=== PATIENT | female | born 1930 | race Caucasian/White ===

== ENCOUNTER 2019-10-16 13:09 | Inpatient (IN) | payer OTHER ==
[~2019-10-16] VITALS: Ht 152.4 cm; Wt 59.0 kg
[2019-10-16 13:25] VITALS: BP_SYST 127
[2019-10-16 14:25] LABS: BASOPHILS % (AUTO) 0.4 % (0.0-2.0); EOSINOPHILS % (AUTO) 0.4 % (0.0-4.0); HEMOGLOBIN 8.9 g/dL (12.0-16.0); LYMPHOCYTES # (AUTO) 0.6 K/uL (1.0-5.5); LYMPHOCYTES % (AUTO) 7.9 % (20.5-51.5); MEAN CORPUSCULAR HEMOGLOBIN 28 pg (27-31); MEAN CORPUSCULAR HGB CONC 33 % (32-36); MEAN CORPUSCULAR VOLUME 86 fL (79.0-98.0); MONOCYTES # (AUTO) 0.3 K/uL (0.0-1.0); MONOCYTES % (AUTO) 4.1 % (1.7-9.3); NEUTROPHILS # (AUTO) 6.9 K/uL (1.8-7.7); NEUTROPHILS % (AUTO) 87.2 % (40.0-70.0); PLATELET COUNT (AUTO) 172 K/uL (130-430); RED BLOOD CELL COUNT(AUTO) 3.17 MIL/uL (4.2-6.2); RED CELL DISTRIBUTION WIDTH 15.9 % (9.0-15.0)
[2019-10-16 14:26] LABS: HEMATOCRIT 27.1 % (36-48)
[2019-10-16 14:35] LABS: ANION GAP 5 (5-15); CALCIUM 8.2 mg/dL (8.4-11.0); CHLORIDE 105 mmol/L (98-107); CREATININE 0.98 mg/dL (0.55-1.30); GLUCOSE 166 mg/dL (70-99); POTASSIUM 4.2 mmol/L (3.5-5.1); SODIUM SERUM 136 mmol/L (136-145); UREA NITROGEN, BLOOD 17 mg/dL (8-21)
[2019-10-16 14:41] LABS: INR 1.1 (0.8-1.2); PROTHROMBIN TIME 10.6 SECS (9.5-12.5)
[2019-10-16 14:42] LABS: ALANINE AMINOTRANSFERASE 22 U/L (12-78); ALBUMIN 2.9 g/dL (3.4-4.8); ASPARTATE AMINOTRANSFERASE 12 U/L (10-37); TOTAL BILIRUBIN 0.2 mg/dL (0.0-1.0)
[2019-10-16] MEDS ORDERED: ASPIRIN 81 MG TAB.CHEW PO ONE (15:45)
[2019-10-16] MEDS ORDERED: ENOXAPARIN SODIUM 60 MG/0.6 ML SYRINGE SUBCUT ONE (15:45)
[2019-10-16 18:02] LABS: CHOLESTEROL 117 mg/dL (<200); HDL CHOLESTEROL 49 mg/dL (>55); LDL CHOLESTEROL 51 mg/dL (<100); TRIGLYCERIDES 112 mg/dL (30-150)
[2019-10-16 18:33] VITALS: BP_SYST 137
[2019-10-16 21:03] VITALS: BP_SYST 130
[2019-10-16 22:00] VITALS: BP_SYST 121
[2019-10-17] MEDS ORDERED: DILTIAZEM HCL 25 MG/5 ML VIAL IVP ONE ×4 (01:15→13:30)
[2019-10-17 02:08] VITALS: BP_SYST 135
[2019-10-17 05:57] LABS: BASOPHILS % (AUTO) 0.6 % (0.0-2.0); EOSINOPHILS # (AUTO) 0.1 K/uL (0.0-0.4); EOSINOPHILS % (AUTO) 1.3 % (0.0-4.0); HEMATOCRIT 26.4 % (36-48); HEMOGLOBIN 8.7 g/dL (12.0-16.0); LYMPHOCYTES # (AUTO) 1.7 K/uL (1.0-5.5); LYMPHOCYTES % (AUTO) 23.6 % (20.5-51.5); MEAN CORPUSCULAR HEMOGLOBIN 28 pg (27-31); MEAN CORPUSCULAR HGB CONC 33 % (32-36); MEAN CORPUSCULAR VOLUME 85 fL (79.0-98.0); MONOCYTES # (AUTO) 0.5 K/uL (0.0-1.0); MONOCYTES % (AUTO) 7.3 % (1.7-9.3); NEUTROPHILS # (AUTO) 4.7 K/uL (1.8-7.7); NEUTROPHILS % (AUTO) 67.2 % (40.0-70.0); PLATELET COUNT (AUTO) 169 K/uL (130-430); RED BLOOD CELL COUNT(AUTO) 3.11 MIL/uL (4.2-6.2); RED CELL DISTRIBUTION WIDTH 15.5 % (9.0-15.0)
[2019-10-17 06:16] LABS: ALANINE AMINOTRANSFERASE 25 U/L (12-78); ALBUMIN 2.8 g/dL (3.4-4.8); ANION GAP 6 (5-15); ASPARTATE AMINOTRANSFERASE 13 U/L (10-37); CALCIUM 8.2 mg/dL (8.4-11.0); CHLORIDE 104 mmol/L (98-107); CREATININE 0.79 mg/dL (0.55-1.30); GLUCOSE 98 mg/dL (70-99); SODIUM SERUM 137 mmol/L (136-145); TOTAL BILIRUBIN 0.4 mg/dL (0.0-1.0); UREA NITROGEN, BLOOD 12 mg/dL (8-21)
[2019-10-17] MEDS ORDERED: CELE-85 PO (07:24)
[2019-10-17] MEDS ORDERED: PRO10 PO (07:26)
[2019-10-17 08:00] VITALS: BP_SYST 159
[2019-10-17] MEDS: ASPIRIN 325 MG TABLET (ECOTRIN) PO SCH (09:12)
[2019-10-17] MEDS: ENOXAPARIN SODIUM 60 MG/0.6 ML SYRINGE SUBCUT SCH (09:15)
[2019-10-17] MEDS ORDERED: METOPROLOL SUCCINATE 25 MG TAB.SR.24H (TOPROL XL) PO ONE (10:45)
[2019-10-17 12:00] VITALS: BP_SYST 144
[2019-10-17 16:00] VITALS: BP_SYST 105
[2019-10-17] MEDS ORDERED: *LOVENOX 1MG/KG Q12H/PHARMACY XX PRN (17:00)
[2019-10-17] MEDS ORDERED: METOPROLOL SUCCINATE 50 MG TAB.SR.24H (TOPROL XL) PO ONE (17:15)
[2019-10-17] MEDS ORDERED: RIVAROXABAN 10 MG TABLET PO SCH (18:00)
[2019-10-17 20:35] VITALS: BP_SYST 125
[2019-10-18 01:09] VITALS: BP_SYST 112
[2019-10-18 08:01] VITALS: BP_SYST 127
[2019-10-18] MEDS: ASPIRIN 325 MG TABLET (ECOTRIN) PO SCH (09:50)
[2019-10-18] MEDS: ENOXAPARIN SODIUM 60 MG/0.6 ML SYRINGE SUBCUT SCH (09:52)
[2019-10-18 11:13] VITALS: BP_SYST 134
[2019-10-18 16:00] VITALS: BP_SYST 124
[2019-10-18] MEDS ORDERED: METOPROLOL SUCCINATE 25 MG TAB.SR.24H (TOPROL XL) PO SCH (21:00)
== END 2019-10-18 16:30 | DRG 309 ==
LOC: SED 13:09 → STU 15:49 → OBSVTOIN 10-17 17:29
PROVIDERS: ADMIT Internal Medicine Hospice and Palliative Medicine; ATTEND Internal Medicine Hospice and Palliative Medicine
DX: I48.91 Unspecified atrial fibrillation (principal); E44.1 Mild protein-calorie malnutrition; G89.29 Other chronic pain; D64.9 Anemia, unspecified; M54.16 Radiculopathy, lumbar region; I10 Essential (primary) hypertension; M54.5 Low back pain; Z88.2 Allergy status to sulfonamides
CPT/HCPCS: 36415; 70450-TC; 71045; 72146; 72148; 72170-TC; 80053; 80061; 84484; 85025; 85610-TC; 85730-TC; 93005; 93306; 93880; 96372; 99285; G0378; J1650; J3490

== ENCOUNTER 2019-11-20 13:55 | Inpatient (IN) | payer OTHER ==
[~2019-11-20] VITALS: Ht 162.6 cm; Wt 68.0 kg
[~2019-11-20 13:55] MED LIST: PRO10 PO
[2019-11-20 15:32] VITALS: BP_SYST 139
[2019-11-20] MEDS ORDERED: APIX5TAB4 PO (16:38)
[2019-11-20] MEDS ORDERED: AMLO5TAB4 PO (16:38)
[2019-11-20] MEDS ORDERED: MULT-1089 PO (16:38)
[2019-11-20] MEDS ORDERED: METO25TA3 PO (16:38)
[2019-11-20] MEDS ORDERED: PRO10 PO (16:38)
[2019-11-20 17:04] LABS: BASOPHILS # (AUTO) 0.1 K/uL (0.0-0.2); EOSINOPHILS # (AUTO) 0.1 K/uL (0.0-0.4); EOSINOPHILS % (AUTO) 0.7 % (0.0-4.0); HEMATOCRIT 34.7 % (36-48); LYMPHOCYTES # (AUTO) 1.5 K/uL (1.0-5.5); LYMPHOCYTES % (AUTO) 18.7 % (20.5-51.5); MEAN CORPUSCULAR HEMOGLOBIN 26 pg (27-31); MEAN CORPUSCULAR HGB CONC 32 % (32-36); MEAN CORPUSCULAR VOLUME 82 fL (79.0-98.0); MONOCYTES # (AUTO) 0.7 K/uL (0.0-1.0); MONOCYTES % (AUTO) 8.6 % (1.7-9.3); NEUTROPHILS # (AUTO) 5.7 K/uL (1.8-7.7); PLATELET COUNT (AUTO) 202 K/uL (130-430); RED BLOOD CELL COUNT(AUTO) 4.21 MIL/uL (4.2-6.2); RED CELL DISTRIBUTION WIDTH 16.4 % (9.0-15.0); WHITE BLOOD COUNT (AUTO) 8.1 K/uL (4.8-10.8)
[2019-11-20 17:19] LABS: INR 1.4 (0.8-1.2); PROTHROMBIN TIME 14.2 SECS (9.5-12.5)
[2019-11-20 17:35] LABS: ANION GAP 9 (5-15); CALCIUM 8.5 mg/dL (8.4-11.0); CHLORIDE 102 mmol/L (98-107); CREATININE 0.96 mg/dL (0.55-1.30); GLUCOSE 113 mg/dL (70-99); POTASSIUM 4.1 mmol/L (3.5-5.1); SODIUM SERUM 135 mmol/L (136-145); UREA NITROGEN, BLOOD 28 mg/dL (8-21)
[2019-11-20 17:41] LABS: BILIRUBIN,URINE NEGATIVE (NEGATIVE); BLOOD, URINE NEGATIVE (NEGATIVE); COLOR,URINE YELLOW (YELLOW); GLUCOSE,URINE NEGATIVE (NEGATIVE); KETONES,URINE NEGATIVE (NEGATIVE); LEUKOCYTE ESTERASE ,URINE TRACE (NEGATIVE); NITRITE, URINE NEGATIVE (NEGATIVE); PROTEIN URINE 1+ (NEGATIVE); UROBILINOGEN,URINE 0.2 (0.2-1.0)
[2019-11-20 17:41] LABS: ALANINE AMINOTRANSFERASE 31 U/L (12-78); ALBUMIN 3.2 g/dL (3.4-4.8); ASPARTATE AMINOTRANSFERASE 24 U/L (10-37); TOTAL BILIRUBIN 0.6 mg/dL (0.0-1.0)
[2019-11-20 17:42] LABS: ALCOHOL, BLOOD < 3 mg/dL (<10)
[2019-11-20 17:53] LABS: CLARITY/URINE HAZY (CLEAR)
[2019-11-20 18:09] LABS: BACTERIA,URINE FEW /HPF (None Seen); MUCUS,URINE 1+ /LPF (None Seen); RBC,URINE NONE SEEN /HPF (0-3)
[2019-11-20] MEDS ORDERED: NS 500 ML IV ONE (20:00)
[2019-11-20] MEDS ORDERED: cefTRIAXone 1 GM IVPB PREMIX 50 ML IV ONE (21:30)
[2019-11-20 22:26] VITALS: BP_SYST 142
[2019-11-20] MEDS ORDERED: MORPHINE 4 MG/ML INJ. SYRINGE IVP PRN (23:15)
[2019-11-20] MEDS ORDERED: MORPHINE 2 MG/ML INJ. SYRINGE IVP PRN (23:15)
[2019-11-20] MEDS ORDERED: ONDANSETRON HCL 4 MG/2 ML VIAL IVP PRN (23:15)
[2019-11-20] MEDS ORDERED: ALBUTEROL SULFATE 0.083% 2.5 MG/3 ML VIAL.NEB INH PRN (23:15)
[2019-11-20 23:40] VITALS: BP_SYST 142
[2019-11-21] MEDS ORDERED: AZITHROMYCIN 500 MG/VIAL (ZITHROMAX) IV ONE (00:45)
[2019-11-21] MEDS: AZITHROMYCIN 500 MG in NS 250 ML IV SCH ×2 (01:04→22:44)
[2019-11-21 02:12] VITALS: BP_SYST 155
[2019-11-21 06:30] LABS: BASOPHILS % (AUTO) 0.4 % (0.0-2.0); EOSINOPHILS % (AUTO) 0.5 % (0.0-4.0); HEMATOCRIT 33.2 % (36-48); HEMOGLOBIN 10.5 g/dL (12.0-16.0); LYMPHOCYTES # (AUTO) 1.2 K/uL (1.0-5.5); MEAN CORPUSCULAR HEMOGLOBIN 26 pg (27-31); MEAN CORPUSCULAR HGB CONC 32 % (32-36); MEAN CORPUSCULAR VOLUME 83 fL (79.0-98.0); MONOCYTES # (AUTO) 0.9 K/uL (0.0-1.0); MONOCYTES % (AUTO) 9.6 % (1.7-9.3); NEUTROPHILS # (AUTO) 6.9 K/uL (1.8-7.7); NEUTROPHILS % (AUTO) 76.5 % (40.0-70.0); PLATELET COUNT (AUTO) 191 K/uL (130-430); RED BLOOD CELL COUNT(AUTO) 4.01 MIL/uL (4.2-6.2); RED CELL DISTRIBUTION WIDTH 16.9 % (9.0-15.0)
[2019-11-21 07:37] LABS: ALANINE AMINOTRANSFERASE 27 U/L (12-78); ALBUMIN 2.9 g/dL (3.4-4.8); ANION GAP 9 (5-15); ASPARTATE AMINOTRANSFERASE 30 U/L (10-37); CALCIUM 8.4 mg/dL (8.4-11.0); CHLORIDE 103 mmol/L (98-107); CREATININE 0.96 mg/dL (0.55-1.30); GLUCOSE 109 mg/dL (70-99); POTASSIUM 4.3 mmol/L (3.5-5.1); SODIUM SERUM 136 mmol/L (136-145); TOTAL BILIRUBIN 0.6 mg/dL (0.0-1.0); UREA NITROGEN, BLOOD 29 mg/dL (8-21)
[2019-11-21 08:22] VITALS: BP_SYST 136
[2019-11-21] MEDS ORDERED: FLUoxetine HCL 10 MG CAPSULE (PROzac) PO SCH (09:00)
[2019-11-21] MEDS: amLODIPine BESYLATE 5 MG TABLET PO SCH (09:37)
[2019-11-21] MEDS: METOPROLOL SUCCINATE 25 MG TAB.SR.24H (TOPROL XL) PO SCH (09:37)
[2019-11-21] MEDS: FUROSEMIDE 20 MG/2 ML VIAL IVP ONE ×2 (10:15→12:21)
[2019-11-21] MEDS: FLUoxetine HCL 10 MG CAPSULE (PROzac) PO SCH (11:40)
[2019-11-21] MEDS: APIXABAN 2.5 MG TABLET PO SCH ×2 (11:42→20:47)
[2019-11-21 12:33] VITALS: BP_SYST 125
[2019-11-21 16:26] VITALS: BP_SYST 132
[2019-11-21 20:00] VITALS: BP_SYST 119
[2019-11-21] MEDS: FUROSEMIDE 20 MG TABLET PO SCH (20:48)
[2019-11-21] MEDS ORDERED: cefTRIAXone 1 GM IVPB PREMIX 50 ML IV SCH (21:00)
[2019-11-22 02:22] VITALS: BP_SYST 137
[2019-11-22 07:29] LABS: BASOPHILS % (AUTO) 0.6 % (0.0-2.0); EOSINOPHILS % (AUTO) 0.6 % (0.0-4.0); HEMATOCRIT 31.4 % (36-48); HEMOGLOBIN 10.1 g/dL (12.0-16.0); LYMPHOCYTES # (AUTO) 1.1 K/uL (1.0-5.5); LYMPHOCYTES % (AUTO) 14.1 % (20.5-51.5); MEAN CORPUSCULAR HEMOGLOBIN 26 pg (27-31); MEAN CORPUSCULAR HGB CONC 32 % (32-36); MEAN CORPUSCULAR VOLUME 82 fL (79.0-98.0); MONOCYTES # (AUTO) 0.7 K/uL (0.0-1.0); MONOCYTES % (AUTO) 9.1 % (1.7-9.3); NEUTROPHILS # (AUTO) 5.9 K/uL (1.8-7.7); NEUTROPHILS % (AUTO) 75.6 % (40.0-70.0); PLATELET COUNT (AUTO) 177 K/uL (130-430); RED BLOOD CELL COUNT(AUTO) 3.84 MIL/uL (4.2-6.2); RED CELL DISTRIBUTION WIDTH 16.4 % (9.0-15.0); WHITE BLOOD COUNT (AUTO) 7.8 K/uL (4.8-10.8)
[2019-11-22 08:00] VITALS: BP_SYST 144
[2019-11-22] MEDS: METOPROLOL SUCCINATE 25 MG TAB.SR.24H (TOPROL XL) PO SCH (08:58)
[2019-11-22] MEDS: FLUoxetine HCL 10 MG CAPSULE (PROzac) PO SCH (08:58)
[2019-11-22] MEDS: FUROSEMIDE 20 MG TABLET PO SCH (08:58)
[2019-11-22] MEDS: amLODIPine BESYLATE 5 MG TABLET PO SCH (08:58)
[2019-11-22] MEDS: APIXABAN 2.5 MG TABLET PO SCH (08:59)
[2019-11-22] MEDS ORDERED: POTASSIUM CHLORIDE 8 MEQ TABLET.SA PO SCH (09:00)
[2019-11-22] MEDS ORDERED: PANT20TA2 PO (09:26)
[2019-11-22] MEDS ORDERED: CEPH250C PO (09:54)
[2019-11-22 11:23] VITALS: BP_SYST 129
[2019-11-22 12:00] VITALS: BP_SYST 139
== END 2019-11-22 19:00 | disposition home or self-care (01) | DRG 292 ==
LOC: SED 13:55 → STU 21:19
PROVIDERS: ADMIT Internal Medicine Hospice and Palliative Medicine; ATTEND Internal Medicine Hospice and Palliative Medicine
DX: I11.0 Hypertensive heart disease with heart failure (principal); I48.20 Chronic atrial fibrillation, unspecified; E87.1 Hypo-osmolality and hyponatremia; I50.33 Acute on chronic diastolic (congestive) heart failure; J40 Bronchitis, not specified as acute or chronic; F03.90 Unspecified dementia, unspecified severity, without behavioral disturbance, psychotic disturbance, mood disturbance, and anxiety; I27.20 Pulmonary hypertension, unspecified; Z79.01 Long term (current) use of anticoagulants; Z79.899 Other long term (current) drug therapy; Z86.73 Personal history of transient ischemic attack (TIA), and cerebral infarction without residual deficits; Z88.1 Allergy status to other antibiotic agents; Z88.2 Allergy status to sulfonamides
CPT/HCPCS: 36415; 71045; 80053; 81000-TC; 82962; 83605; 83880; 84484; 85025; 85379; 85610-TC; 85730-TC; 87040-TC; 87081; 87086; 93005; 96361; 96365; 99285; G0378; G0482; J0456; J0696; J1940; J7040; J7050

== ENCOUNTER 2019-12-19 10:50 | Inpatient (IN) | payer OTHER ==
[~2019-12-19] VITALS: Ht 160 cm; Wt 49.4 kg
[2019-12-19 10:50] VITALS: BP_SYST 134
[~2019-12-19 10:50] MED LIST changes: +AMLO5TAB4 PO; +APIX5TAB4 PO; +CEPH250C PO; +METO25TA3 PO; +MULT-1089 PO; +PANT20TA2 PO
[2019-12-19] MEDS ORDERED: ONDANSETRON HCL 4 MG/2 ML VIAL IVP ONE (11:15)
[2019-12-19] MEDS ORDERED: IOHEXOL 100 ML IV ONE (12:16)
[2019-12-19 12:39] LABS: BASOPHILS # (AUTO) 0.1 K/uL (0.0-0.2); EOSINOPHILS % (AUTO) 0.5 % (0.0-4.0); HEMATOCRIT 34.2 % (36-48); HEMOGLOBIN 10.7 g/dL (12.0-16.0); LYMPHOCYTES # (AUTO) 1.2 K/uL (1.0-5.5); LYMPHOCYTES % (AUTO) 16.6 % (20.5-51.5); MEAN CORPUSCULAR HEMOGLOBIN 25 pg (27-31); MEAN CORPUSCULAR HGB CONC 31 % (32-36); MEAN CORPUSCULAR VOLUME 78 fL (79.0-98.0); MONOCYTES # (AUTO) 0.6 K/uL (0.0-1.0); NEUTROPHILS # (AUTO) 5.3 K/uL (1.8-7.7); NEUTROPHILS % (AUTO) 73.9 % (40.0-70.0); PLATELET COUNT (AUTO) 192 K/uL (130-430); RED BLOOD CELL COUNT(AUTO) 4.38 MIL/uL (4.2-6.2); RED CELL DISTRIBUTION WIDTH 17.8 % (9.0-15.0); WHITE BLOOD COUNT (AUTO) 7.2 K/uL (4.8-10.8)
[2019-12-19 12:47] LABS: ANION GAP 9 (5-15); CALCIUM 8.3 mg/dL (8.4-11.0); CHLORIDE 92 mmol/L (98-107); CREATININE 1.26 mg/dL (0.55-1.30); GLUCOSE 108 mg/dL (70-99); POTASSIUM 3.6 mmol/L (3.5-5.1); SODIUM SERUM 126 mmol/L (136-145); UREA NITROGEN, BLOOD 28 mg/dL (8-21)
[2019-12-19 13:00] LABS: ALANINE AMINOTRANSFERASE 25 U/L (12-78); ALBUMIN 2.9 g/dL (3.4-4.8); ASPARTATE AMINOTRANSFERASE 24 U/L (10-37); LIPASE 82 U/L (73-393)
[2019-12-19 13:36] LABS: BILIRUBIN,URINE NEGATIVE (NEGATIVE); BLOOD, URINE NEGATIVE (NEGATIVE); CLARITY/URINE CLEAR (CLEAR); COLOR,URINE YELLOW (YELLOW); GLUCOSE,URINE NEGATIVE (NEGATIVE); KETONES,URINE NEGATIVE (NEGATIVE); LEUKOCYTE ESTERASE ,URINE NEGATIVE (NEGATIVE); NITRITE, URINE NEGATIVE (NEGATIVE); PROTEIN URINE NEGATIVE (NEGATIVE); UROBILINOGEN,URINE 0.2 (0.2-1.0)
[2019-12-19] MEDS ORDERED: FURO-150 PO (13:45)
[2019-12-19] MEDS ORDERED: GABA-531 PO (13:45)
[2019-12-19] MEDS ORDERED: FUROSEMIDE 40 MG/4 ML VIAL IVP ONE (14:30)
[2019-12-19 15:05] VITALS: BP_SYST 137
[2019-12-19 16:00] VITALS: BP_SYST 137
[2019-12-19 19:00] VITALS: BP_SYST 127
[2019-12-19 20:00] VITALS: BP_SYST 127
[2019-12-19] MEDS: FUROSEMIDE 40 MG/4 ML VIAL IVP SCH (21:45)
[2019-12-20 00:51] VITALS: BP_SYST 132
[2019-12-20 08:00] VITALS: BP_SYST 124
[2019-12-20] MEDS ORDERED: APIXABAN 2.5 MG TABLET PO SCH (09:00)
[2019-12-20] MEDS ORDERED: APIXABAN 2.5 MG TABLET PO ONE (09:00)
[2019-12-20] MEDS: METOPROLOL SUCCINATE 25 MG TAB.SR.24H (TOPROL XL) PO SCH (09:07)
[2019-12-20] MEDS: GABAPENTIN 300 MG CAPSULE PO SCH (09:07)
[2019-12-20] MEDS: FLUoxetine HCL 20 MG CAPSULE (PROzac) PO SCH (09:07)
[2019-12-20] MEDS: amLODIPine BESYLATE 5 MG TABLET PO SCH (09:08)
[2019-12-20] MEDS: FUROSEMIDE 40 MG/4 ML VIAL IVP SCH ×3 (09:08→21:44)
[2019-12-20] MEDS: PANTOPRAZOLE SODIUM 40 MG TAB PO SCH (09:08)
[2019-12-20 12:00] VITALS: BP_SYST 134
[2019-12-20 16:29] VITALS: BP_SYST 119
[2019-12-20 20:00] VITALS: BP_SYST 104
[2019-12-20] MEDS: APIXABAN 2.5 MG TABLET PO SCH (21:44)
[2019-12-21] VITALS (7 sets, daily range): BP systolic 101–132
[2019-12-21] MEDS: FLUoxetine HCL 20 MG CAPSULE (PROzac) PO SCH (09:24)
[2019-12-21] MEDS: amLODIPine BESYLATE 5 MG TABLET PO SCH (09:25)
[2019-12-21] MEDS: GABAPENTIN 300 MG CAPSULE PO SCH (09:26)
[2019-12-21] MEDS: PANTOPRAZOLE SODIUM 40 MG TAB PO SCH (09:26)
[2019-12-21] MEDS: METOPROLOL SUCCINATE 25 MG TAB.SR.24H (TOPROL XL) PO SCH (09:26)
[2019-12-21] MEDS: APIXABAN 2.5 MG TABLET PO SCH ×2 (09:27→21:43)
[2019-12-21] MEDS: FUROSEMIDE 40 MG/4 ML VIAL IVP SCH (10:30)
[2019-12-22] VITALS: BP_SYST 128
[2019-12-22 07:42] VITALS: BP_SYST 98
[2019-12-22] MEDS: METOPROLOL SUCCINATE 25 MG TAB.SR.24H (TOPROL XL) PO SCH (09:00)
[2019-12-22] MEDS: amLODIPine BESYLATE 5 MG TABLET PO SCH (09:00)
[2019-12-22] MEDS: APIXABAN 2.5 MG TABLET PO SCH ×2 (10:07→20:22)
[2019-12-22] MEDS: PANTOPRAZOLE SODIUM 40 MG TAB PO SCH (10:08)
[2019-12-22] MEDS: FLUoxetine HCL 20 MG CAPSULE (PROzac) PO SCH (10:08)
[2019-12-22] MEDS: GABAPENTIN 300 MG CAPSULE PO SCH (10:08)
[2019-12-22] MEDS: FUROSEMIDE 40 MG/4 ML VIAL IVP SCH ×2 (10:09→20:21)
[2019-12-22] MEDS ORDERED: BUDESONIDE 0.5 MG/2 ML AMPUL.NEB INH ONE (10:30)
[2019-12-22] MEDS: ALBUTEROL SULFATE 0.083% 2.5 MG/3 ML VIAL.NEB INH SCH ×4 (11:20→23:07)
[2019-12-22 12:30] VITALS: BP_SYST 125
[2019-12-22 16:34] VITALS: BP_SYST 102
[2019-12-22] MEDS: BUDESONIDE 0.5 MG/2 ML AMPUL.NEB INH SCH (20:06)
[2019-12-23 00:20] VITALS: BP_SYST 117
[2019-12-23] MEDS: ALBUTEROL SULFATE 0.083% 2.5 MG/3 ML VIAL.NEB INH SCH ×5 (03:34→23:41)
[2019-12-23 07:27] LABS: BASOPHILS % (AUTO) 0.6 % (0.0-2.0); EOSINOPHILS % (AUTO) 0.1 % (0.0-4.0); HEMATOCRIT 31.2 % (36-48); HEMOGLOBIN 9.8 g/dL (12.0-16.0); LYMPHOCYTES # (AUTO) 0.8 K/uL (1.0-5.5); LYMPHOCYTES % (AUTO) 10.8 % (20.5-51.5); MEAN CORPUSCULAR HEMOGLOBIN 24 pg (27-31); MEAN CORPUSCULAR HGB CONC 32 % (32-36); MEAN CORPUSCULAR VOLUME 77 fL (79.0-98.0); MONOCYTES # (AUTO) 0.7 K/uL (0.0-1.0); NEUTROPHILS # (AUTO) 6.1 K/uL (1.8-7.7); NEUTROPHILS % (AUTO) 79.5 % (40.0-70.0); PLATELET COUNT (AUTO) 235 K/uL (130-430); RED BLOOD CELL COUNT(AUTO) 4.04 MIL/uL (4.2-6.2); RED CELL DISTRIBUTION WIDTH 17.7 % (9.0-15.0); WHITE BLOOD COUNT (AUTO) 7.7 K/uL (4.8-10.8)
[2019-12-23 07:35] LABS: ALANINE AMINOTRANSFERASE 22 U/L (12-78); ALBUMIN 2.8 g/dL (3.4-4.8); ANION GAP 5 (5-15); ASPARTATE AMINOTRANSFERASE 27 U/L (10-37); CALCIUM 8.3 mg/dL (8.4-11.0); CHLORIDE 94 mmol/L (98-107); GLUCOSE 99 mg/dL (70-99); SODIUM SERUM 133 mmol/L (136-145); TOTAL BILIRUBIN 0.8 mg/dL (0.0-1.0); UREA NITROGEN, BLOOD 13 mg/dL (8-21)
[2019-12-23 07:43] LABS: POTASSIUM 2.7 mmol/L (3.5-5.1)
[2019-12-23] MEDS ORDERED: POTASSIUM CHLORIDE 20 MEQ TAB.PRT.SR PO ONE (08:15)
[2019-12-23] MEDS: BUDESONIDE 0.5 MG/2 ML AMPUL.NEB INH SCH ×2 (08:23→19:58)
[2019-12-23 08:42] VITALS: BP_SYST 122
[2019-12-23] MEDS ORDERED: POTASSIUM CHLORIDE 40 MEQ in NS 250 ML IV ONE (09:00)
[2019-12-23] MEDS: GABAPENTIN 300 MG CAPSULE PO SCH (09:47)
[2019-12-23] MEDS: LACTULOSE 20 GM/30 ML UDC PO SCH (09:47)
[2019-12-23] MEDS: PANTOPRAZOLE SODIUM 40 MG TAB PO SCH (09:47)
[2019-12-23] MEDS: APIXABAN 2.5 MG TABLET PO SCH ×2 (09:49→21:16)
[2019-12-23] MEDS: FUROSEMIDE 40 MG/4 ML VIAL IVP SCH ×2 (09:50→21:14)
[2019-12-23] MEDS: amLODIPine BESYLATE 5 MG TABLET PO SCH (09:58)
[2019-12-23] MEDS: METOPROLOL SUCCINATE 25 MG TAB.SR.24H (TOPROL XL) PO SCH (09:59)
[2019-12-23] MEDS: FLUoxetine HCL 20 MG CAPSULE (PROzac) PO SCH (09:59)
[2019-12-23] MEDS ORDERED: DILTIAZEM HCL 30 MG TABLET PO ONE (11:00)
[2019-12-23 12:00] VITALS: BP_SYST 142
[2019-12-23 16:00] VITALS: BP_SYST 118
[2019-12-23] MEDS: DILTIAZEM HCL 30 MG TABLET PO SCH (18:13)
[2019-12-23 20:00] VITALS: BP_SYST 115
[2019-12-24] VITALS: BP_SYST 119
[2019-12-24] MEDS: DILTIAZEM HCL 30 MG TABLET PO SCH ×4 (00:07→17:12)
[2019-12-24] MEDS: ALBUTEROL SULFATE 0.083% 2.5 MG/3 ML VIAL.NEB INH SCH (03:30)
[2019-12-24 06:40] LABS: ALANINE AMINOTRANSFERASE 22 U/L (12-78); ALBUMIN 2.7 g/dL (3.4-4.8); ANION GAP 2 (5-15); ASPARTATE AMINOTRANSFERASE 22 U/L (10-37); CHLORIDE 96 mmol/L (98-107); CREATININE 1.12 mg/dL (0.55-1.30); GLUCOSE 142 mg/dL (70-99); POTASSIUM 3.9 mmol/L (3.5-5.1); SODIUM SERUM 132 mmol/L (136-145); TOTAL BILIRUBIN 1.2 mg/dL (0.0-1.0); UREA NITROGEN, BLOOD 13 mg/dL (8-21)
[2019-12-24 06:41] LABS: BASOPHILS % (AUTO) 0.2 % (0.0-2.0); HEMATOCRIT 33.1 % (36-48); HEMOGLOBIN 10.2 g/dL (12.0-16.0); LYMPHOCYTES # (AUTO) 0.9 K/uL (1.0-5.5); LYMPHOCYTES % (AUTO) 6.3 % (20.5-51.5); MEAN CORPUSCULAR HEMOGLOBIN 24 pg (27-31); MEAN CORPUSCULAR HGB CONC 31 % (32-36); MEAN CORPUSCULAR VOLUME 78 fL (79.0-98.0); MONOCYTES # (AUTO) 0.6 K/uL (0.0-1.0); MONOCYTES % (AUTO) 4.3 % (1.7-9.3); NEUTROPHILS # (AUTO) 13.1 K/uL (1.8-7.7); NEUTROPHILS % (AUTO) 89.2 % (40.0-70.0); PLATELET COUNT (AUTO) 280 K/uL (130-430); RED BLOOD CELL COUNT(AUTO) 4.28 MIL/uL (4.2-6.2); WHITE BLOOD COUNT (AUTO) 14.7 K/uL (4.8-10.8)
[2019-12-24 08:06] VITALS: BP_SYST 114
[2019-12-24] MEDS: FLUoxetine HCL 20 MG CAPSULE (PROzac) PO SCH (08:48)
[2019-12-24] MEDS: LACTULOSE 20 GM/30 ML UDC PO SCH (08:48)
[2019-12-24] MEDS: METOPROLOL SUCCINATE 25 MG TAB.SR.24H (TOPROL XL) PO SCH (08:49)
[2019-12-24] MEDS: GABAPENTIN 300 MG CAPSULE PO SCH (08:50)
[2019-12-24] MEDS: FUROSEMIDE 40 MG/4 ML VIAL IVP SCH (08:51)
[2019-12-24] MEDS: APIXABAN 2.5 MG TABLET PO SCH (08:51)
[2019-12-24] MEDS: PANTOPRAZOLE SODIUM 40 MG TAB PO SCH (08:52)
[2019-12-24 12:10] VITALS: BP_SYST 121
[2019-12-24 16:33] VITALS: BP_SYST 127
[2019-12-24 17:12] VITALS: BP_SYST 125
[2019-12-25 06:10] LABS: HEPATITIS A AB, IgM Negative (Negative); HEPATITIS B CORE AB, IgM Negative (Negative); HEPATITIS B SURFACE AG Negative (Negative)
== END 2019-12-24 17:36 | DRG 291 ==
LOC: SED 10:50 → STU 14:47
PROVIDERS: ADMIT Internal Medicine Hospice and Palliative Medicine; ATTEND Internal Medicine Hospice and Palliative Medicine
DX: I11.0 Hypertensive heart disease with heart failure (principal); E43 Unspecified severe protein-calorie malnutrition; E87.1 Hypo-osmolality and hyponatremia; I48.20 Chronic atrial fibrillation, unspecified; F03.90 Unspecified dementia, unspecified severity, without behavioral disturbance, psychotic disturbance, mood disturbance, and anxiety; J44.9 Chronic obstructive pulmonary disease, unspecified; Z86.73 Personal history of transient ischemic attack (TIA), and cerebral infarction without residual deficits; Z99.3 Dependence on wheelchair; Z87.440 Personal history of urinary (tract) infections; Z88.2 Allergy status to sulfonamides; Z79.899 Other long term (current) drug therapy; I50.33 Acute on chronic diastolic (congestive) heart failure
CPT/HCPCS: 36415; 71045; 80053; 80074; 81003; 82140-TC; 83690-TC; 83880; 84484; 85025; 93005; 94640; 94760; 96374; 96375; 99285; G0378; J1940; J2405; J3480; J7050; J7613; J7626; Q9967